=== PATIENT | female | born 1965 | race Caucasian/White ===

== ENCOUNTER 2018-05-14 02:29 | Outpatient (CLI) | payer OTHER, SELFPAY ==
[2018-05-14 10:17] LABS: ALT 36 U/L (12-78); AST 20 U/L (15-37); Albumin 3.7 g/dL (3.4-5.0); Alkaline Phosphatase 116 U/L (46-116); Anion Gap 5.1 mmol/L (3-11); BUN 10 mg/dL (7-18); Bilirubin, Total 0.3 mg/dL (0.2-1.0); CO2 31.9 mmol/L (21.0-32.0); CREATININE 0.73 mg/dL (0.55-1.02); Calcium 9.3 mg/dL (8.5-10.1); Chloride 104 mmol/L (98-107); Cholesterol 274 mg/dL (50-200); Glucose 85 mg/dL (70-100); HDL Cholesterol 61 mg/dL (40-60); LDL CHOLESTEROL 174 mg/dL (<100); Potassium 4.2 mmol/L (3.5-5.1); Sodium 141 mmol/L (136-145); TSH (W/Ref FT4) 1.29 uIU/mL (0.358-3.74); Total Protein 7.2 g/dL (6.4-8.2); Triglyceride 163 mg/dL (30-150)
== END 2018-05-14 02:49 ==
DX: E07.9 Disorder of thyroid, unspecified (principal); E78.5 Hyperlipidemia, unspecified; R00.2 Palpitations; R51 Headache; N30.10 Interstitial cystitis (chronic) without hematuria; M54.5 Low back pain
CPT/HCPCS: 36415; 80053; 80061; 83721; 84443

== ENCOUNTER 2019-05-18 03:19 | Outpatient (CLI) | payer OTHER, SELFPAY ==
[2019-05-18 10:08] LABS: ALT 58 U/L (14-59); AST 26 U/L (15-37); Albumin 3.8 g/dL (3.4-5.0); Alkaline Phosphatase 112 U/L (46-116); Anion Gap 6.5 mmol/L (3-11); BUN 16 mg/dL (7-18); Bilirubin, Total 0.4 mg/dL (0.2-1.0); CO2 31.5 mmol/L (21.0-32.0); CREATININE 0.73 mg/dL (0.55-1.02); Calcium 8.9 mg/dL (8.5-10.1); Calculated LDL 105 mg/dL (<100); Chloride 105 mmol/L (98-107); Cholesterol 187 mg/dL (<200); Glucose 85 mg/dL (74-106); HDL Cholesterol 61 mg/dL (40-60); Potassium 4.4 mmol/L (3.5-5.1); Sodium 143 mmol/L (136-145); TSH (W/Ref FT4) 1.49 uIU/mL (0.36-3.74); Total Protein 6.9 g/dL (6.4-8.2); Triglyceride 106 mg/dL (<150)
== END 2019-05-18 03:39 ==
DX: E78.5 Hyperlipidemia, unspecified (principal); G43.701 Chronic migraine without aura, not intractable, with status migrainosus; R53.83 Other fatigue; Z00.00 Encounter for general adult medical examination without abnormal findings; G47.00 Insomnia, unspecified
CPT/HCPCS: 36415; 80053; 80061; 84443

== ENCOUNTER 2019-09-20 00:41 | Outpatient (CLI) | payer OTHER, SELFPAY ==
--- NOTE | 2019-09-20 15:22 | DI.CT_ITS ---
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 V isualized brain is unremarkable. Orbital structures appear intact. Paranasal sinuses and mastoid ai r cells are clear. The internal auditory canals appear normal and symmetrical. The cochlea, semicircular canals, and vi sualized auditory ossicles are unremarkable appearance bilaterally. IMPRESSION: Negative temporal bone CT
== END 2019-09-20 01:01 ==
PROVIDERS: Visit Provider Otolaryngology Otolaryngology/Facial Plastic Surgery
DX: H90.12 Conductive hearing loss, unilateral, left ear, with unrestricted hearing on the contralateral side (principal)
CPT/HCPCS: 70480

== ENCOUNTER 2020-01-18 10:45 | Outpatient (CLI) | payer OTHER, SELFPAY ==
--- NOTE | 2020-01-18 08:45 | DI.RAD_ITS ---
EXAM: XR CERVICAL SP COMP W FLEX/EXT CLINICAL HISTORY: cervical upper zina pain with rad. tingling to UE, m54.2, m54.9. TECHNIQUE: 2D digital imaging was performed. COMPARISON: No exams were available for comparison FINDINGS: The disc spaces are well maintained. There are small endplate osteophytes projecting mainly anterior ly at C5-6 and C6-7. There are prominent facet degenerative changes at C4-5 through C7-T1. There is some straightening of the normal cervical lordosis which could be secondary to the facet degenerativ e changes. There is no significant neural foraminal narrowing visible. There is no subluxation with flexion or extension. There appears to be some limited range of motion. There is no prevertebral s oft tissue swelling. Visualized portions of the lungs appear clear. IMPRESSION: Degenerative changes, particularly of the facet joints. DATA REPOSITORY: RADIATION DOSE DELIVERED:
--- NOTE | 2020-01-18 08:45 | DI.RAD_ITS ---
EXAM: XR THORACIC SPINE COMPLETE CLINICAL HISTORY: Intermittent,worsening neck pain/upper back pain, M54.9, M542. TECHNIQUE: 2D digital imaging was performed. COMPARISON: CR XR CERVICAL SP COMP W FLEX/EXT from 01/18/2020 FINDINGS: BONES: There is no fracture or destructive lesion. The vertebral bodies and posterior elements are un remarkable. DISKS:Alignment is within normal limits. Interverebral disc spaces are maintained. There are minimal endplate osteophytes in the mid thoracic and upper lumbar spine. SOFT TISSUE: Visualized lungs are clear. IMPRESSION: Mild degenerative disc changes. DATA REPOSITORY: RADIATION DOSE DELIVERED:
== END 2020-01-18 11:05 ==
DX: M47.814 Spondylosis without myelopathy or radiculopathy, thoracic region (principal); M47.812 Spondylosis without myelopathy or radiculopathy, cervical region; M54.2 Cervicalgia; M54.9 Dorsalgia, unspecified
CPT/HCPCS: 72052; 72072

== ENCOUNTER 2020-01-24 01:18 | Outpatient (CLI) | payer OTHER, SELFPAY ==
--- NOTE | 2020-01-24 07:15 | DI.US_ITS ---
EXAM: US THYROID CLINICAL HISTORY: F/U thyroid nodules - previous US at [facility] [place]Z86.39 TECHNIQUE: Ultrasound performed using standard protocol. COMPARISON: US ULTRASOUND THYROID SOFT TISSUE from 12/06/2014 FINDINGS: Thyroid ultrasound was performed according to the usual protocol. Right thyroid lobe measures 53 x 1 6 x 16 millimeters. Left thyroid lobe measures 44 x 12 x 11 millimeters. The isthmus is 3 millimeters in thickness. There are multiple small thyroid nodules. Largest nodule is right thyroid lobe inferior pole nodule measuring 19 x 14 x 11 millimeters, this is of mixed echogenicity and predominantly I so to hypoechoi c. This is wider than tall and has ill-defined margins. There are some punctate echogenic foci. Th is is a TI-RADS classification TR 4 lesion, moderately suspicious, fine needle aspiration recommended for size greater than 1.5 cm. And 11 millimeter in diameter TR 4 lesion is noted in the mid to upper pole right thyroid lobe. A TR 3 lesion is noted measuring 6 millimeters in diameter in left thyroid. IMPRESSION: Right thyroid lobe lesion meets TI-RADS criteria for biopsy as described above. DATA REPOSITORY:
== END 2020-01-24 01:38 ==
DX: E04.2 Nontoxic multinodular goiter (principal); Z86.39 Personal history of other endocrine, nutritional and metabolic disease
CPT/HCPCS: 76536

== ENCOUNTER 2020-06-07 03:48 | Outpatient (CLI) | payer OTHER, SELFPAY ==
[2020-06-07 10:01] LABS: ALT 52 U/L (14-59); AST 26 U/L (15-37); Alkaline Phosphatase 105 U/L (46-116); Anion Gap 8.1 mmol/L (3-11); BUN 12 mg/dL (7-18); Bilirubin, Total 0.4 mg/dL (0.2-1.0); CO2 28.9 mmol/L (21.0-32.0); CREATININE 0.8 mg/dL (0.55-1.02); Calcium 9.3 mg/dL (8.5-10.1); Calculated LDL 96 mg/dL (<100); Chloride 105 mmol/L (98-107); Cholesterol 188 mg/dL (<200); Glucose 90 mg/dL (74-106); HDL Cholesterol 78 mg/dL (40-60); Potassium 4.3 mmol/L (3.5-5.1); Sodium 142 mmol/L (136-145); TSH (W/Ref FT4) 1.23 uIU/mL (0.36-3.74); Total Protein 7.3 g/dL (6.4-8.2); Triglyceride 72 mg/dL (<150)
== END 2020-06-07 03:49 | disposition home or self-care (01) ==
LOC: LBO 03:48
DX: E78.5 Hyperlipidemia, unspecified (principal); R22.1 Localized swelling, mass and lump, neck
CPT/HCPCS: 36415; 80053; 80061; 84443

== ENCOUNTER 2021-09-03 01:50 | Outpatient (CLI) | payer OTHER, SELFPAY ==
[2021-09-03 08:48] LABS: ALT 37 U/L (14-59); AST 21 U/L (15-37); Albumin 3.7 g/dL (3.4-5.0); Alkaline Phosphatase 111 U/L (46-116); Anion Gap 6.3 mmol/L (3-11); BUN 19 mg/dL (7-18); Bilirubin, Total 0.3 mg/dL (0.2-1.0); CO2 27.7 mmol/L (21.0-32.0); CREATININE 0.9 mg/dL (0.55-1.02); Calcium 9.1 mg/dL (8.5-10.1); Chloride 106 mmol/L (98-107); Glucose 89 mg/dL (74-106); Potassium 4.3 mmol/L (3.5-5.1); Sodium 140 mmol/L (136-145); Total Protein 7.1 g/dL (6.4-8.2)
== END 2021-09-03 01:51 | disposition home or self-care (01) ==
LOC: LBO 01:51
DX: Z00.00 Encounter for general adult medical examination without abnormal findings (principal); E78.5 Hyperlipidemia, unspecified
CPT/HCPCS: 36415; 80053

== ENCOUNTER → 2021-09-10 01:49 | Outpatient (CLI) | payer OTHER, SELFPAY ==
--- NOTE | 2021-09-10 14:41 | DI.RAD_ITS ---
Exam(s) XR KNEE RT 3V AP,LAT,GISSELL EXAM: XR KNEE RT 3V AP,LAT,GISSELL CLINICAL HISTORY: knee pain and clicking without known injury,M25.561. TECHNIQUE: 2D digital imaging was performed. COMPARISON: No exams were available for comparison FINDINGS: 3 views No evidence of fracture nor prominent joint effusion. No degenerative changes. No osseous lesions. No osteochondral defects. No osteophytes. Bone density normal. IMPRESSION: No significant radiograph findings in the right knee. DATA REPOSITORY: RADIATION DOSE DELIVERED:
== END ==
DX: M25.561 Pain in right knee (principal)
CPT/HCPCS: 73562

== ENCOUNTER 2022-09-10 03:39 | Outpatient (CLI) | payer OTHER, SELFPAY ==
[2022-09-10 13:30] LABS: ALT 40 U/L (14-59); AST 26 U/L (15-37); Alkaline Phosphatase 100 U/L (46-116); Anion Gap 7.4 mmol/L (3-11); BUN 11 mg/dL (7-18); Bilirubin, Total 0.4 mg/dL (0.2-1.0); CO2 28.6 mmol/L (21.0-32.0); CREATININE 0.8 mg/dL (0.55-1.02); Calcium 9.3 mg/dL (8.5-10.1); Calculated LDL 101 mg/dL (<100); Chloride 106 mmol/L (98-107); Cholesterol 198 mg/dL (<200); Estimated GFR 85.35 (mL/min/1.73m2); Glucose 82 mg/dL (74-106); HDL Cholesterol 78 mg/dL (40-60); Potassium 4.2 mmol/L (3.5-5.1); Sodium 142 mmol/L (136-145); Total Protein 7.7 g/dL (6.4-8.2); Triglyceride 99 mg/dL (<150)
[2022-09-11 09:38] LABS: Hepatitis C Ab w Rflx HCV PCR Negative (Negative)
[2022-09-11 09:54] LABS: HIV-1/2 Ag & Ab Screen Negative (Negative)
== END 2022-09-10 03:40 | disposition home or self-care (01) ==
LOC: LBO 03:39
PROVIDERS: PCP Nurse Practitioner Family; Visit Provider Nurse Practitioner Family
DX: Z00.00 Encounter for general adult medical examination without abnormal findings (principal); Z11.59 Encounter for screening for other viral diseases; Z11.4 Encounter for screening for human immunodeficiency virus [HIV]; E78.5 Hyperlipidemia, unspecified
CPT/HCPCS: 36415; 80053; 80061; 86803; 87389

== ENCOUNTER 2023-09-10 01:03 | Outpatient (CLI) | payer OTHER, SELFPAY ==
[2023-09-10 15:31] LABS: ALT 38 U/L (14-59); AST 25 U/L (15-37); Alkaline Phosphatase 108 U/L (46-116); Anion Gap 5.3 mmol/L (3-11); BUN 14 mg/dL (7-18); Bilirubin, Total 0.6 mg/dL (0.2-1.0); CO2 30.7 mmol/L (21.0-32.0); CREATININE 0.8 mg/dL (0.55-1.02); Calcium 9.2 mg/dL (8.5-10.1); Calculated LDL 108 mg/dL (<100); Chloride 105 mmol/L (98-107); Cholesterol 207 mg/dL (<200); Estimated GFR 84.82 (mL/min/1.73m2); Glucose 90 mg/dL (74-106); HDL Cholesterol 82 mg/dL (40-60); Potassium 4.4 mmol/L (3.5-5.1); Sodium 141 mmol/L (136-145); Total Protein 7.5 g/dL (6.4-8.2); Triglyceride 89 mg/dL (<150)
== END 2023-09-10 01:04 | disposition home or self-care (01) ==
LOC: LBO 01:04
PROVIDERS: PCP Nurse Practitioner Family; Visit Provider Nurse Practitioner Family
DX: E78.5 Hyperlipidemia, unspecified (principal)
CPT/HCPCS: 36415; 80053; 80061

== ENCOUNTER 2024-03-02 10:41 | Outpatient (REF) | payer OTHER, SELFPAY | END 2024-03-02 10:42 | disposition home or self-care (01) | LOC: LBN 10:41 | PROVIDERS: PCP Nurse Practitioner Family; Visit Provider Nurse Practitioner Family | DX: R30.0 Dysuria (principal) | CPT/HCPCS: 87077; 87086; 87186 ==

== ENCOUNTER 2024-09-07 22:40 | Outpatient (REF) | payer OTHER, SELFPAY ==
[2024-09-07 21:43] LABS: CREATININE 0.8 mg/dL (0.55-1.02)
[2024-09-07 22:16] LABS: Bacteria Moderate HPF (Negative); Crystals Moderate Amorphous HPF (Negative); Epithelial Cells Rare HPF (Negative); RBC Negative HPF (0-2); WBC 0-2 HPF (0-5)
[2024-09-07 22:17] LABS: C & S Indicated? C&S Done As Ordered; Casts Negative LPF (Negative); Mucus Negative (Negative)
== END 2024-09-07 22:41 | disposition home or self-care (01) ==
LOC: LBN 22:40
PROVIDERS: PCP Nurse Practitioner Family; Visit Provider Physician Assistant Medical
DX: R10.32 Left lower quadrant pain (principal); R82.89 Other abnormal findings on cytological and histological examination of urine
CPT/HCPCS: 81015; 82565; 87086

== ENCOUNTER 2024-09-09 01:39 | Outpatient (CLI) | payer OTHER, SELFPAY ==
[2024-09-09 10:20] LABS: ALT 41 U/L (14-59); AST 23 U/L (15-37); Albumin 3.8 g/dL (3.4-5.0); Alkaline Phosphatase 120 U/L (46-116); Anion Gap 5.2 mmol/L (3-11); BUN 13 mg/dL (7-18); Bilirubin, Total 0.4 mg/dL (0.2-1.0); CO2 31.8 mmol/L (21.0-32.0); CREATININE 0.9 mg/dL (0.55-1.02); Calcium 9.5 mg/dL (8.5-10.1); Calculated LDL 104 mg/dL (<100); Chloride 106 mmol/L (98-107); Cholesterol 200 mg/dL (<200); Estimated GFR 73.19 (mL/min/1.73m2); Glucose 89 mg/dL (74-106); HDL Cholesterol 66 mg/dL (>or=50); Potassium 4.3 mmol/L (3.5-5.1); Sodium 143 mmol/L (136-145); Total Protein 7.3 g/dL (6.4-8.2); Triglyceride 153 mg/dL (<150)
== END 2024-09-09 01:40 | disposition home or self-care (01) ==
LOC: LBO 01:39
PROVIDERS: PCP Nurse Practitioner Family; Visit Provider Nurse Practitioner Family
DX: E78.5 Hyperlipidemia, unspecified (principal)
CPT/HCPCS: 36415; 80053; 80061

== ENCOUNTER 2024-09-16 15:11 | Outpatient (REF) | payer OTHER, SELFPAY ==
[2024-09-16 21:14] LABS: Bilirubin Negative (Negative); Blood Negative (Negative); Clarity Clear (Clear); Glucose Negative (Negative); Ketones Negative (Negative); Leukocyte Esterase Negative (Negative); Nitrite Negative (Negative); Urobilinogen 0.2 mg/dL (Up to 0.2)
== END 2024-09-16 15:12 | disposition home or self-care (01) ==
LOC: LBN 15:11
PROVIDERS: PCP Nurse Practitioner Family; Visit Provider Nurse Practitioner Family
DX: R10.9 Unspecified abdominal pain (principal); B96.89 Other specified bacterial agents as the cause of diseases classified elsewhere
CPT/HCPCS: 81003

== ENCOUNTER 2024-09-23 00:28 | Outpatient (CLI) | payer OTHER, SELFPAY ==
--- NOTE | 2024-09-23 07:00 | DI.DEXA_ITS ---
Exam(s) XR DEXA BONE DENSITY W/WO BON EXAM: XR DEXA BONE DENSITY W/WO BON CLINICAL HISTORY: screening for osteoporosis, POSTMENOPAUSAL STATE, Z78.0 TECHNIQUE: COMPARISON: No exams were available for comparison FINDINGS: Lateral Spine Image: Unremarkable. No compression deformities identified. Left hip: Total T-Score: -2.2 Total Z-Score: -1.2 T- and Z-scores: Findings are consistent with osteopenia. Lumbar Spine: Total T-Score: -2.9 Total Z-Score: -1.5 T- and Z-scores: Findings are consistent with osteoporosis. There is osteoporosis in the right forearm with a total T-score of -2.7 and Z- score -1.5. IMPRESSION: Osteoporosis in the lumbar spine and right forearm.
== END 2024-09-23 00:48 ==
LOC: DI 00:28
PROVIDERS: PCP Nurse Practitioner Family; Visit Provider Nurse Practitioner Family
DX: Z78.0 Asymptomatic menopausal state (principal); Z13.820 Encounter for screening for osteoporosis; M81.0 Age-related osteoporosis without current pathological fracture
CPT/HCPCS: 77080

== ENCOUNTER 2024-09-28 17:27 | Outpatient (CLI) | payer OTHER, SELFPAY ==
[2024-09-28 17:15] LABS: Vitamin D 25 Total 43 ng/mL (30-100)
== END 2024-09-28 17:28 | disposition home or self-care (01) ==
LOC: LBO 17:27
PROVIDERS: PCP Nurse Practitioner Family; Visit Provider Nurse Practitioner Family
DX: M81.0 Age-related osteoporosis without current pathological fracture (principal)
CPT/HCPCS: 36415; 82306